=== PATIENT | male | born 1970 | race Caucasian/White ===

== ENCOUNTER 2019-01-18 07:14 | Day surgery (SDC) | payer BC ==
[~2019-01-18 07:14] MED LIST: Lactated Ringers 1,000 ML IV SCH
[2019-01-18] MEDS ORDERED: Propofol 200 MG/20 ML SDV IV ONE (07:15)
[2019-01-18] MEDS ORDERED: Lidocaine 1% PF 2 ML SDV INJECT ONE (07:15)
--- NOTE | 2019-01-18 08:28 | PCM.OPNOTE ---
- General Post-Op/Procedure Note Date of Surgery/Procedure: 01/18/19 Operative Procedure(s): c scope with bx Findings: desc colon polyp Pre Op Diagnosis: screening Post-Op Diagnosis: colon polyp Anesthesia Technique: MAC Primary Surgeon: Camilo Alba Anesthesia Provider: Luisito Odell Pathology: colon polyp Complications: None Condition: Good Free Text/Narrative:: see dictation
--- NOTE | 2019-01-18 12:08 | OR ---
DATE OF OPERATION: 01/18/2019 SURGEON: Camilo Alba MD PROCEDURE PERFORMED: Colonoscopy with cold forceps biopsy. PREOPERATIVE DIAGNOSIS: Screening for colon cancer. POSTOPERATIVE DIAGNOSIS: Descending colon polyp. INDICATION: This is a 49-year-old white male, presents for screening C-scope. DESCRIPTION OF OPERATION: After an excellent IV sedation was administered, digital rectal exam was performed. No marked abnormality was noted. Flexible colonoscope was inserted and advanced to the cecum. The prep was excellent. The following findings were noted. Ascending colon, unremarkable. Transverse colon, unremarkable. Descending colon, a small polypoid lesion biopsied with cold biopsy forceps and sent for permanent. Sigmoid and rectum, unremarkable. Results by letter. /[id number] /MODL
== END 2019-01-18 09:15 | disposition home or self-care (01) ==
LOC: FB.SDS 07:14
PROVIDERS: ATTEND Surgery
DX: Z12.11 Encounter for screening for malignant neoplasm of colon (principal); K63.5 Polyp of colon; K21.0 Gastro-esophageal reflux disease with esophagitis; Z87.891 Personal history of nicotine dependence; Z79.899 Other long term (current) drug therapy
CPT/HCPCS: 88305; J2001; J2704; J7120